=== PATIENT | male | born 1955 | race Hispanic/Latino ===

== ENCOUNTER 2017-11-14 16:54 | Inpatient (IN) | payer MEDICARE ==
[~2017-11-14] VITALS: Ht 170.2 cm; Wt 99.8 kg
[2017-11-14] MEDS ORDERED: MORPHINE SULFATE 2 MG/ML SYR IV STA ×2 (17:15→19:23)
[2017-11-14] MEDS ORDERED: SODIUM CHLORIDE 0.9% 1000ML 1,000 ML IV STA (17:15)
[2017-11-14] MEDS ORDERED: ONDANSETRON HCL INJ 2 MG/ML VIAL IV STA (17:15)
[2017-11-14] MEDS ORDERED: ASPIRIN 325 MG TAB PO ONE (17:15)
[2017-11-14] MEDS ORDERED: HYDRALAZINE HCL 20 MG/ML VIAL IV STA (17:19)
[2017-11-14 17:22] LABS: BASOPHILS # (AUTO) 0.1 (0.0-0.1); BASOPHILS % 1.1 % (0.0-1.0); EOSINOPHILS # (AUTO) 0.2 (0.0-0.4); EOSINOPHILS % 5.3 % (0.0-6.0); HEMATOCRIT 39.9 % (38.2-49.6); HEMOGLOBIN 14.1 g/dL (14.0-18.0); LYMPHOCYTES # (AUTO) 1.6 (1.0-3.2); LYMPHOCYTES % 34.1 % (18.0-39.1); MEAN CORPUSCULAR HGB CONC 35.3 g/dL (31-35); MEAN CORPUSCULAR VOLUME 90.5 fL (81-99); MONOCYTES # (AUTO) 0.5 (0.2-0.8); MONOCYTES % 11.4 % (4.4-11.3); NEUTROPHILS # (AUTO) 2.2 (2.1-6.9); NEUTROPHILS % 47.7 % (38.7-80.0); PLATELET COUNT 102 x10e3/uL (140-360); RED BLOOD COUNT 4.41 x10e6/uL (4.3-5.7)
[2017-11-14] MEDS ORDERED: NITROGLYCERIN 2% OINT 1 GM PKT TOP ONE (17:30)
[2017-11-14 17:43] LABS: INR 1.1; PARTIAL THROMBOPLASTIN TIME 21.2 seconds (23.8-35.5); PROTHROMBIN TIME 13.4 seconds (11.9-14.5)
[2017-11-14 17:46] LABS: ALANINE AMINOTRANSFERASE 17 IU/L (0-55); ALBUMIN 4.3 g/dL (3.5-5.0); ALBUMIN/GLOBULIN RATIO 1.3 (0.8-2.0); ALKALINE PHOSPHATASE 83 IU/L (40-150); ANION GAP 16.1 mmol/L (8-16); BLOOD UREA NITROGEN 13 mg/dL (7-26); BUN/CREATININE RATIO 11 (6-25); CALCIUM 9.6 mg/dL (8.4-10.2); CARBON DIOXIDE 25 mmol/L (22-29); CHLORIDE 96 mmol/L (98-107); CREATINE KINASE 43 IU/L (30-200); CREATININE, SERUM 1.18 mg/dL (0.72-1.25); EST GLOMERULAR FILTRATION RATE > 60 ML/MIN (60-); GLUCOSE 275 mg/dL (74-118); MAGNESIUM 1.7 MG/DL (1.3-2.1); POTASSIUM 4.1 mmol/L (3.5-5.1); SODIUM 133 mmol/L (136-145)
--- NOTE | 2017-11-14 18:24 | Diagnostic Imaging Report ---
EXAMINATION: CHEST SINGLE (PORTABLE) 11/14/2017 5:15 PM COMPARISON: None INDICATION: Chest pain DISCUSSION: Limited examination due to portable technique. LINES: Median sternotomy wires are intact. LUNGS: Pulmonary vascular congestion. No focal consolidation PLEURA: No pleural effusion or pneumothorax. HEART AND MEDIASTINUM: Postsurgical changes from CABG. Normal heart size. BONES AND SOFT TISSUES: Healed rib fracture deformities on the left. The soft tissues are normal. IMPRESSION: Mild pulmonary vascular congestion. Lee Corona MD Signed by: Dr. Lee Corona M.D. on 11/14/2017 6:20 PM
[2017-11-14] MEDS ORDERED: ENOXAPARIN INJ 80 MG/0.8 ML SYR SC STA (18:35)
[2017-11-14] MEDS ORDERED: FUROSEMIDE INJ 10 MG/ML 2 ML VIAL IV ONE (18:45)
[2017-11-14] MEDS ORDERED: DEXTROSE 50% SYRINGE 50 ML IV PRN (18:45)
[2017-11-14] MEDS ORDERED: SODIUM CHLORIDE FLUSH 10 ML SYR INJ PRN (18:45)
--- OUTSIDE RECORDS SUMMARY | 2017-11-14 18:52 | XMS REPORT ---
Author Author [facility] Address Unknown Phone Unavailable Care Team Providers Care Millwright Helper Name Role Phone CARLIEPEDRO LUISRAMIREZ Unavailable Unavailable Problems This patient has no known problems. Allergies, Adverse Reactions, Alerts This patient has no known allergies or adverse reactions. Medications This patient has no known medications. Encounters Start Date/Time End Date/Time Encounter Type Admission Type Attending [facility] Facility Care Department Encounter ID 2017-06-15 00:00:00 2017-06-15 00:00:00 Outpatient [facility] [id number] 2017-05-29 00:00:00 2017-05-29 00:00:00 Outpatient [facility] [id number] 2017-04-06 08:14:12 2017-04-06 08:14:12 Outpatient [facility] [id number] 2017-03-26 00:00:00 2017-03-26 00:00:00 Outpatient [facility] [id number] 2017-03-12 08:16:51 2017-03-12 08:16:51 Outpatient [facility] [id number] 2017-03-10 10:40:12 2017-03-10 10:40:12 Outpatient [facility] [id number] 2017-03-10 10:10:03 2017-03-10 10:10:03 Outpatient [facility] [id number] 2017-03-05 13:30:13 2017-03-05 13:30:13 Outpatient [facility] [id number] 2017-03-05 11:48:43 2017-03-05 11:48:43 Outpatient [facility] [id number] Results Test Description Test Time Test Comments Text Results Atomic Results Result Comments CHEST SINGLE (PORTABLE) 2017-11-14 18:18:00 [facility] [address] [place] [id number] Patient Name: PATRICK BUTTS JR MR #: [id number] : 1955 Age/Sex: 62/M Req #: [id number] [facility] Physician: Ordered by: ASHLEY SEXTON MD Report #: [id number] Location: ER Room/Bed: Procedure: [id number] DX/CHEST SINGLE (PORTABLE) Exam Date: 02/23 Exam Time: 1725 REPORT STATUS: Signed EXAMINATION: CHEST SINGLE (PORTABLE) 11/14/2017 5:15 PM COMPARISON: None INDICATION: Chest pain DISCUSSION: Limited examination due to portable technique. LINES: Median sternotomy wires are intact. LUNGS: Pulmonary vascular congestion. No focal consolidation PLEURA: No pleural effusion or pneumothorax. HEART AND MEDIASTINUM: Postsurgical changes from CABG. Normal heart size. BONES AND SOFT TISSUES: Healed rib fracture deformities on the left. The soft tissues are normal. IMPRESSION: Mild pulmonary vascular congestion. Alex Corona MD Signed by: Dr. Alex Corona M.D. on 11/14/2017 6:20 PM Dictated By: ALEX CORONA MD 19 Transcribed By: CARLI on 11/14/171819 COPY TO: ASHLEY SEXTON MD
[2017-11-14] MEDS: METOPROLOL TARTRATE 25 MG TAB PO SCH (19:20)
[2017-11-14] MEDS: ENOXAPARIN SODIUM INJ 100 MG/ML SYR SC SCH (19:21)
[2017-11-14] MEDS: MORPHINE SULFATE 2 MG/ML SYR IV PRN ×2 (19:31→23:44)
[2017-11-14 20:20] VITALS: BP 139/68
[2017-11-14 20:30] VITALS: BP 139/68
[2017-11-14] MEDS: INSULIN REGULAR, HUMAN 100 UNIT/1 ML 3ML VIAL SQ SCH (22:05)
[2017-11-14 23:00] VITALS: BP 112/57
[2017-11-14] MEDS: NITROGLYCERIN 2% OINT 1 GM PKT TOP SCH (23:38)
[2017-11-15 01:43] LABS: CREATINE KINASE MB 1.6 ng/mL (0-5.0)
[2017-11-15 05:00] VITALS: BP 154/80
[2017-11-15] MEDS: MORPHINE SULFATE 2 MG/ML SYR IV PRN ×4 (05:39→23:14)
[2017-11-15] MEDS: NITROGLYCERIN 2% OINT 1 GM PKT TOP SCH ×3 (05:39→18:00)
[2017-11-15 06:06] LABS: BASOPHILS # (AUTO) 0.1 (0.0-0.1); EOSINOPHILS # (AUTO) 0.3 (0.0-0.4); EOSINOPHILS % 5.7 % (0.0-6.0); HEMATOCRIT 36.6 % (38.2-49.6); HEMOGLOBIN 12.8 g/dL (14.0-18.0); LYMPHOCYTES # (AUTO) 2.3 (1.0-3.2); LYMPHOCYTES % 46.2 % (18.0-39.1); MEAN CORPUSCULAR HEMOGLOBIN 32.2 pg (28-32); MONOCYTES # (AUTO) 0.5 (0.2-0.8); MONOCYTES % 9.3 % (4.4-11.3); NEUTROPHILS # (AUTO) 1.9 (2.1-6.9); NEUTROPHILS % 37.4 % (38.7-80.0); PLATELET COUNT 96 x10e3/uL (140-360); RED BLOOD COUNT 3.98 x10e6/uL (4.3-5.7)
[2017-11-15] MEDS: METOPROLOL TARTRATE 25 MG TAB PO SCH ×2 (06:08→21:35)
[2017-11-15] MEDS: ENOXAPARIN SODIUM INJ 100 MG/ML SYR SC SCH ×2 (06:13→18:25)
[2017-11-15 06:27] LABS: ALANINE AMINOTRANSFERASE 15 IU/L (0-55); ALBUMIN 3.7 g/dL (3.5-5.0); ALBUMIN/GLOBULIN RATIO 1.3 (0.8-2.0); ALKALINE PHOSPHATASE 75 IU/L (40-150); ANION GAP 13.3 mmol/L (8-16); BLOOD UREA NITROGEN 15 mg/dL (7-26); BUN/CREATININE RATIO 14 (6-25); CARBON DIOXIDE 26 mmol/L (22-29); CHLORIDE 96 mmol/L (98-107); CHOL/HDL RATIO 6.4 (3.9-4.7); CHOLESTEROL 225 MD/DL (0-199); CREATININE, SERUM 1.08 mg/dL (0.72-1.25); EST GLOMERULAR FILTRATION RATE > 60 ML/MIN (60-); GLUCOSE 261 mg/dL (74-118); HDL CHOLESTEROL 35 MG/DL (40-60); LDL CHOLESTEROL 127 MG/DL (60-130); POTASSIUM 3.3 mmol/L (3.5-5.1); SODIUM 132 mmol/L (136-145); TRIGLYCERIDES 314 MG/DL (0-149)
[2017-11-15 08:00] VITALS: BP 105/48
[2017-11-15] MEDS: INSULIN REGULAR, HUMAN 100 UNIT/1 ML 3ML VIAL SQ SCH ×4 (08:00→21:36)
[2017-11-15] MEDS: ASPIRIN 325 MG TAB EC PO SCH (08:00)
[2017-11-15] MEDS ORDERED: FUROSEMIDE INJ 10 MG/ML 2 ML VIAL IV SCH (09:00)
[2017-11-15 11:59] VITALS: BP 104/63
[2017-11-15 12:39] LABS: CREATINE KINASE MB 2.2 ng/mL (0-5.0)
[2017-11-15] MEDS ORDERED: SERTRALINE HCL50 MG PO (13:55)
[2017-11-15] MEDS ORDERED: MELOXICAM7.5 MG PO (13:55)
[2017-11-15] MEDS ORDERED: METFORMIN HCL500 MG PO (13:55)
[2017-11-15] MEDS ORDERED: CITALOPRAM HBR20 MG PO (13:55)
[2017-11-15] MEDS ORDERED: CARVEDILOL3.125 MG PO (13:55)
[2017-11-15] MEDS ORDERED: GABAPENTIN400 MG PO (13:55)
[2017-11-15] MEDS: GABAPENTIN 400 MG CAP PO SCH ×2 (15:02→21:35)
[2017-11-15 16:25] VITALS: BP 144/81
[2017-11-15] MEDS ORDERED: METFORMIN HCL 500 MG TAB PO SCH (17:00)
[2017-11-15] MEDS ORDERED: CARVEDILOL 3.125 MG TAB PO SCH (17:00)
[2017-11-15 19:00] VITALS: BP 141/77
[2017-11-15 21:59] LABS: CREATINE KINASE MB 2.5 ng/mL (0-5.0)
[2017-11-15 23:37] VITALS: BP 141/77
[2017-11-16] VITALS (12 sets, daily range): BP systolic 115–148; BP diastolic 55–88
[2017-11-16] MEDS: NITROGLYCERIN 2% OINT 1 GM PKT TOP SCH ×4 (00:58→17:50)
[2017-11-16] MEDS: METOPROLOL TARTRATE 25 MG TAB PO SCH (05:49)
[2017-11-16] MEDS: MORPHINE SULFATE 2 MG/ML SYR IV PRN ×3 (06:20→18:55)
[2017-11-16] MEDS: ENOXAPARIN SODIUM INJ 100 MG/ML SYR SC SCH (06:28)
[2017-11-16] MEDS: INSULIN REGULAR, HUMAN 100 UNIT/1 ML 3ML VIAL SQ SCH ×4 (07:30→20:56)
[2017-11-16] MEDS ORDERED: POTASSIUM CHLORIDE 20 MEQ TAB CR PO NR (08:30)
[2017-11-16] MEDS ORDERED: MELOXICAM 7.5 MG TAB PO SCH (09:00)
[2017-11-16] MEDS ORDERED: CITALOPRAM HYDROBROMIDE 20 MG TAB PO SCH (09:00)
[2017-11-16] MEDS: SERTRALINE HCL 50 MG TAB PO SCH (09:00)
[2017-11-16] MEDS: ASPIRIN 325 MG TAB EC PO SCH (09:00)
[2017-11-16] MEDS: GABAPENTIN 400 MG CAP PO SCH ×3 (09:00→20:56)
--- NOTE | 2017-11-16 09:17 | Consultation ---
DATE OF CONSULTATION: November 15, 2017 CARDIOLOGY CONSULTATION REASON FOR CONSULTATION: Chest pain. CONSULTING PHYSICIAN: Dr. Jordi Leo HPI: This is a 62-year-old male that presented with chest pain. According to the patient, he had open heart surgery in 2008 times 3 vessels at [facility], and has not been followed up with any store person. He stated that he lives in [place], [place], but recently relocated to [place], [place], and has been trying to find a store person. He stated having a right CEA in 2011 and was told his left was completely occluded with no surgical intervention. He also stated he smokes half a pack of cigarettes daily, and has been noncompliant with his medications. He stated for the last 3 weeks to 1 month he has been having stabbing chest pain that felt like an elephant has been sitting on his chest that comes and goes. He stated on Thursday the chest pain got so worse that he saw his PCP, and was started on a reflux medication. He stated the pain was still going on over the weekend accompanied with shortness of breath, exertion with activity, and he decided to come into the emergency room for evaluation. He had a chest x-ray done that showed mild pulmonary vascular congestion. He got troponin done times 3 that was normal, but the 3rd one was positive at 0.3. Cardiology was consulted. He denies any palpitation, any dizziness, any diaphoresis, or headache. EKG showed normal sinus rhythm with some S/T abnormalities and inverted T-waves. BNP was 39.9. PAST MEDICAL HISTORY: CAD, hypertension, diabetes, complete left carotid stenosis, sleep apnea, GERD. PAST SURGICAL HISTORY: Appendectomy, CABG times 3 vessels, and right carotid endarterectomy. FAMILY HISTORY: Positive for hypertension and diabetes. SOCIAL HISTORY: He relocated from [place], [place], to [place] and living with grandchildren. He smokes daily and uses alcohol occasionally. MEDICATIONS: He takes Coreg, gabapentin, meloxicam, metformin, Zoloft, and citalopram. REVIEW OF SYSTEMS: Negative except those mentioned above. He is positive for chest pain and elevated troponin. PHYSICAL EXAMINATION VITAL SIGNS: Temperature 97, heart rate 50, blood pressure 115/55, respirations 22, oxygen saturation 97% on 2 L nasal cannula. GENERAL: He is awake, alert and oriented times 3. HEENT: Mucous membrane moist. NECK: Supple. LUNGS: Bilateral clear to auscultation. CARDIOVASCULAR: S1 and S2 present. ABDOMEN: Soft. NEUROLOGICAL: Intact. EXTREMITIES: With no edema. LABS: Sodium 132, potassium 3.3, chloride 96, CO2 26, BUN 15, creatinine 1.08, glucose 261. White blood cells 5.07, hemoglobin 12.8, hematocrit 36.6, and platelets 96,000. PT 13.4, PTT 21.2 and INR 1.1. IMPRESSION 1. Unstable chest pain. 2. Non-STEMI. 3. Coronary artery disease with coronary artery bypass graft. 4. Hypertension. 5. Diabetes. 6. History of left carotid stenosis. 7. Tobacco abuse. 8. Depression. ASSESSMENT AND PLAN: Will go ahead and get an echocardiogram to assess the LV and the valve function. Due to his cardiac history, symptoms and the elevated troponin, will go ahead and set him up for cardiac catheterization. The plan and procedure explained to him. He agreed. Will keep him n.p.o. and get a consent. Potassium has been replaced. Will continue his home medications. Research Quality Assurance Specialist on tobacco cessation. Further cardiac workup pending clinical course. Thank you for this consultation. DICTATED BY MUKESH PEREA NP Job#: [id number] SUKHDEV
[2017-11-16] MEDS ORDERED: LIDOCAINE HCL 2% LOCAL 20 ML VIAL ONE (12:51)
[2017-11-16] MEDS ORDERED: HEPARIN SOD/SOD CHLORIDE 2,000 ML ONE (12:51)
[2017-11-16] MEDS ORDERED: IOPAMIDOL 370 MG/ML 200 ML INFUS..BTL INJ ONE (12:52)
[2017-11-16] MEDS ORDERED: FENTANYL CITRATE/PF 100MCG/2 ML INJ ONE (12:57)
[2017-11-16] MEDS ORDERED: MIDAZOLAM HCL 2 MG/2 ML VIAL ONE (12:57)
[2017-11-16] MEDS ORDERED: SODIUM CHLORIDE 0.9% 1000ML 1,000 ML ONE (12:57)
--- NOTE | 2017-11-16 20:51 | Operative Report ---
DATE OF PROCEDURE: November 16, 2017 PROCEDURES PERFORMED: 1. Left heart catheterization. 2. Selective coronary angiogram 3. LV gram. 4. Graft injection. INDICATIONS: Unstable angina, borderline elevated troponin, history of CABG. ESTIMATED BLOOD LOSS: 4 mL. ANESTHESIA: 2% lidocaine for local anesthesia. Versed and Fentanyl for conscious sedation. DESCRIPTION OF PROCEDURE: After informed consent, patient was brought to the cardiac catheterization laboratory and placed on the table. Both groins were painted and draped in a sterile fashion. Lidocaine injected in the right groin for local anesthesia. Right femoral artery was accessed by Seldinger technique, and a 5-[place] sheath was placed in the right femoral artery. Patient had plaquing of the aorta and the femoral artery and the catheters were exchanged using Wooly wire. The left main was cannulated using a JL4 5-[place] Citizen catheter. Coronary angiogram was performed and images obtained in multiple views. Right coronary artery was cannulated using a 3DRC 5-[place] Citizen catheter. Coronary angiogram was performed and images obtained in multiple views. The saphenous vein graft to the right coronary artery was cannulated using a 3DRC catheter. Coronary angiogram was performed and images obtained in multiple views. The saphenous vein graft to the obtuse marginal branch was cannulated using 3DRC catheter and coronary angiogram was performed and images obtained in multiple views. The HERNANDEZ to the LAD was cannulated using a HERNANDEZ catheter. LV gram was performed using a pigtail catheter. Patient tolerated the procedure without any complications. REPORT: LEFT MAIN: Normal caliber and there is a 95% distal lesion. LEFT ANTERIOR DESCENDING: There is a 99% lesion at its origin. LEFT CIRCUMFLEX: Full flow noted with no luminal irregularities. RIGHT CORONARY ARTERY: Totally occluded in its mid segment. SAPHENOUS VEIN GRAFT: To the right coronary artery is patent and the saphenous vein graft to the obtuse marginal branch is patent. HERNANDEZ TO LAD: Patent. LV-GRAM: Normal LV function. Overall ejection fraction 65% a 70%. HEMODYNAMICS: Aortic pressure is 147/74. LV pressure 152/7. LVEDP 17. PLAN: Medical management. Job#: [id number]
[2017-11-17] VITALS: BP 142/67
[2017-11-17] MEDS: NITROGLYCERIN 2% OINT 1 GM PKT TOP SCH ×2 (00:32→06:10)
[2017-11-17] MEDS: MORPHINE SULFATE 2 MG/ML SYR IV PRN (00:32)
[2017-11-17 04:00] VITALS: BP 134/65
[2017-11-17 06:26] LABS: BASOPHILS % 0.7 % (0.0-1.0); EOSINOPHILS # (AUTO) 0.2 (0.0-0.4); EOSINOPHILS % 5.4 % (0.0-6.0); HEMATOCRIT 33.4 % (38.2-49.6); HEMOGLOBIN 11.5 g/dL (14.0-18.0); LYMPHOCYTES # (AUTO) 1.6 (1.0-3.2); LYMPHOCYTES % 38.2 % (18.0-39.1); MEAN CORPUSCULAR HEMOGLOBIN 31.8 pg (28-32); MEAN CORPUSCULAR HGB CONC 34.4 g/dL (31-35); MEAN CORPUSCULAR VOLUME 92.3 fL (81-99); MONOCYTES # (AUTO) 0.4 (0.2-0.8); MONOCYTES % 10.8 % (4.4-11.3); NEUTROPHILS # (AUTO) 1.8 (2.1-6.9); NEUTROPHILS % 44.4 % (38.7-80.0); PLATELET COUNT 75 x10e3/uL (140-360); RED BLOOD COUNT 3.62 x10e6/uL (4.3-5.7)
[2017-11-17 06:54] LABS: BLOOD UREA NITROGEN 12 mg/dL (7-26); BUN/CREATININE RATIO 12 (6-25); CALCIUM 8.8 mg/dL (8.4-10.2); CARBON DIOXIDE 27 mmol/L (22-29); CHLORIDE 102 mmol/L (98-107); CREATININE, SERUM 0.97 mg/dL (0.72-1.25); EST GLOMERULAR FILTRATION RATE > 60 ML/MIN (60-); GLUCOSE 205 mg/dL (74-118); SODIUM 136 mmol/L (136-145)
[2017-11-17 07:15] LABS: THYROID STIMULATING HORMONE 18.362 uIU/mL (0.350-4.940)
[2017-11-17 07:30] VITALS: BP 134/65
[2017-11-17] MEDS ORDERED: PANTOPRAZOLE SOD 40 MG TABEC PO SCH (08:30)
[2017-11-17] MEDS: GABAPENTIN 400 MG CAP PO SCH (08:51)
[2017-11-17] MEDS: SERTRALINE HCL 50 MG TAB PO SCH (08:51)
[2017-11-17] MEDS: ASPIRIN 325 MG TAB EC PO SCH (08:51)
[2017-11-17] MEDS: INSULIN REGULAR, HUMAN 100 UNIT/1 ML 3ML VIAL SQ SCH (08:51)
[2017-11-17] MEDS ORDERED: CARVEDILOL 3.125 MG TAB PO SCH (09:00)
[2017-11-17] MEDS ORDERED: ISOSORBIDE MONONITRATE 30 MG TAB CR PO SCH (09:00)
[2017-11-17] MEDS ORDERED: ATORVASTATIN CA20 MG PO (09:32)
[2017-11-17] MEDS ORDERED: NITROGLYCERIN0.4 MG SL (09:33)
[2017-11-17] MEDS ORDERED: CARVEDILOL3.125 MG PO (09:34)
[2017-11-17] MEDS ORDERED: LEVOTHYROXINE50 MCG PO (09:34)
[2017-11-17] MEDS ORDERED: ISOSORBIDE MONO20 MG PO (09:34)
[2017-11-17] MEDS ORDERED: GLIPIZIDE5 MG PO (09:35)
[2017-11-17] MEDS ORDERED: CARAFATE1 GM/10 ML PO (09:36)
[2017-11-17] MEDS ORDERED: OMEPRAZOLE40 MG PO (09:36)
[2017-11-17] MEDS ORDERED: PEPCID20 MG PO (09:37)
[2017-11-17] MEDS ORDERED: ECOTRIN81 MG PO (09:37)
--- NOTE | 2017-11-17 10:47 | Discharge Summary ---
GLASS PRODUCTION MACHINE OPERATOR: Dr. Brock Olivia FINAL DIAGNOSES 1. Hypertensive emergency associated with spillage of cardiac enzymes. 2. Lud-VR-zagylsuhc myocardial infarction. 3. Sinus bradycardia, resolved. 4. Chest pain and epigastric pain. 5. Possible acute gastritis secondary to taking nonsteroidal anti-inflammatory drug Mobic at home. SUMMARY: The patient is a 62-year-old male who came in with multiple complaints. The patient had epigastric and chest pain. He does have multiple chronic medical problems. He has history of bypass surgery previously and did not follow up with any of his cardiologists. The patient came in and had some abnormal EKGs. His cardiac enzyme was elevated. The patient has also uncontrolled diabetes with glycohemoglobin A1c 11.8. His sugar was in the 200s to 300s. TSH is 18.3. Patient's cardiac enzyme troponin I was elevated at 0.369. On admission the patient's blood pressure was very elevated extremely at 205/101 diastolic. The patient was placed on medication. He is doing much better now. At home, the patient was not taking his medications as instructed. Apparently he was only taking metformin, meloxicam for his pain, gabapentin, Coreg and Celexa. At this time, the patient is stable. Blood pressure is better controlled. He will go home with: 1. Omeprazole 40 mg daily. 2. Carafate suspension 1 gram a.c. nightly. 3. Ecotrin 81 mg daily. 4. Pepcid 40 mg b.i.d. as needed. 5. Nitroglycerin sublingual p.r.n. 6. Lipitor 20 mg nightly. 7. Isosorbide mononitrate 15 mg daily. 8. Levothyroxine 50 mcg daily. 9. Glucotrol XL 10 mg daily. Of note, his cardiac catheterization went well. There was no intervention, and his graft is patent. The patient's EF is approximately 65%. The patient is stable. Plan for medical management per Dr. Olivia on cardiac catheterization results. The patient will discharge home today. Follow up with his family doctor within a week. Patient is stable and discharged home today. Please review my medication list. Diet is an 1800-calorie ADA diet. Activity as tolerated. Follow up with family doctor in approximately 1 week. Job#: [id number]
[2017-11-17] MEDS ORDERED: ATORVASTATIN 20 MG TAB PO SCH (21:00)
== END 2017-11-17 11:37 | disposition home or self-care (01) | DRG 281 ==
LOC: ER 16:54 → ERHOLD 18:50 → IMCU 19:59 → ACU 11-16 10:46 → IMCU 11-16 10:46 → OBSVTOIN 11-16 11:17 → MED/SURG 11-16 16:38
PROVIDERS: ADMIT Internal Medicine; ATTEND Internal Medicine
PROC: 4A023N7 Measurement of Cardiac Sampling and Pressure, Left Heart, Percutaneous Approach (ICD-10-PCS; principal; 2017-11-16)
PROC: B2111ZZ Fluoroscopy of Multiple Coronary Arteries using Low Osmolar Contrast (ICD-10-PCS; 2017-11-16)
PROC: B2151ZZ Fluoroscopy of Left Heart using Low Osmolar Contrast (ICD-10-PCS; 2017-11-16)
PROC: B2121ZZ Fluoroscopy of Single Coronary Artery Bypass Graft using Low Osmolar Contrast (ICD-10-PCS; 2017-11-16)
PROC: B2181ZZ Fluoroscopy of Left Internal Mammary Bypass Graft using Low Osmolar Contrast (ICD-10-PCS; 2017-11-16)
PROC: B41D1ZZ Fluoroscopy of Aorta and Bilateral Lower Extremity Arteries using Low Osmolar Contrast (ICD-10-PCS; 2017-11-16)
DX: I21.4 Non-ST elevation (NSTEMI) myocardial infarction (principal); I16.1 Hypertensive emergency; I25.110 Atherosclerotic heart disease of native coronary artery with unstable angina pectoris; F17.210 Nicotine dependence, cigarettes, uncomplicated; Z95.1 Presence of aortocoronary bypass graft; I65.22 Occlusion and stenosis of left carotid artery; F32.9 Major depressive disorder, single episode, unspecified; K29.00 Acute gastritis without bleeding; T39.395A Adverse effect of other nonsteroidal anti-inflammatory drugs [NSAID], initial encounter; E11.65 Type 2 diabetes mellitus with hyperglycemia; Z79.4 Long term (current) use of insulin; Z79.84 Long term (current) use of oral hypoglycemic drugs
CPT/HCPCS: 36140; 36415; 71045; 77002; 80048; 80053; 80061; 82550; 82553; 82607; 82948; 83036; 83735; 83880; 84443; 84484; 85025; 85610; 85730; 93005; 93041; 93306; 93459; 99285; G0378; J0360; J1650; J1940; J2001; J2250; J2270; J2405; J7030; Q9967